=== PATIENT | male | born 1975 | race Two or more races ===

== ENCOUNTER → 2018-06-19 | Outpatient (CLI) | payer OTHER ==
--- NOTE | 2018-06-20 08:47 | RADIOLOGY REPORT (SQ) ---
EXAM DESCRIPTION: MRI CERVICAL SPINE WITHOUT COMPLETED DATE/TIME: 06/19/2018 8:27 pm REASON FOR STUDY: CERVICALGIA COMPARISON: None. TECHNIQUE: Sagittal and Axial imaging includes T1, T2, STIR and gradient echo sequences. LIMITATIONS: None. FINDINGS: ALIGNMENT: Normal. VERTEBRAE: Intact. BONE MARROW: Normal. No marrow replacement or reactive changes. DISCS: Disc disease at several levels. This includes small disc osteophyte complexes at C3-4 and C5- 6 particularly. HARDWARE: None in the spine. CORD AND BASE OF BRAIN: Skullbase structures incompletely assessed, grossly normal. There may be phyllis y subtle signal in the cord at the C5-6 level, myelopathic. SOFT TISSUES: No soft tissue masses. C1-C2: No significant spinal stenosis. C2-C3: No significant spinal stenosis or exit foraminal stenosis. C3-C4: Disc osteophyte complex contacts the cord without flattening. Mild left and moderate right fo raminal stenosis. C4-C5: Mild left and moderate right foraminal stenosis. C5-C6: Disc osteophyte complex contacts the cord with mild flattening. Marked right and moderate lef t foraminal stenosis. C6-C7: Bilateral foraminal stenosis, at least moderate. C7-T1: No significant spinal stenosis or exit foraminal stenosis. UPPER THORACIC: Incompletely imaged. No significant spinal stenosis or exit foraminal stenosis. OTHER: No other significant finding. IMPRESSION: 1. Multilevel cervical spondylosis. Most pronounced at C5-6. Here, there appears to be mild cord impingement with potential subtle myelopathic signal in the cord. TECHNICAL DOCUMENTATION: JOB ID: [id number] [employer]- All Rights Reserved Reading location - IP/workstation name: [email or web address]
== END ==
LOC: RAD 20:10
PROVIDERS: ATTEND Physician Assistant Medical
DX: M54.2 Cervicalgia (principal)
CPT/HCPCS: 72141

== ENCOUNTER → 2018-11-12 | Outpatient (CLI) | payer OTHER ==
--- NOTE | 2018-11-12 17:58 | RADIOLOGY REPORT (SQ) ---
EXAM DESCRIPTION: SCOLIOSIS SERIES COMPLETED DATE/TIME: 11/12/2018 5:50 pm REASON FOR STUDY: M54.5 LOW BACK PAIN M54.5 LOW BACK PAIN COMPARISON: None. NUMBER OF VIEWS: One view. TECHNIQUE: Standing AP exam of the thoracolumbar spine with measurement of the DAVENPORT angles. LIMITATIONS: None. FINDINGS: GENERALIZED BONY FINDINGS: No anomalies. No worrisome bone lesions. THORACIC SPINE: APEX: T7-8 ANGULATION: Right DEGREES: 8 LUMBAR SPINE: APEX: L2 ANGULATION: Left DEGREES: 7 CHANGE: Not applicable - no prior studies. OTHER: No other significant findings. IMPRESSION: SCOLIOSIS WITH MEASUREMENTS ABOVE. TECHNICAL DOCUMENTATION: JOB ID: [id number] [employer]- All Rights Reserved Reading location - IP/workstation name: [email or web address]
== END ==
LOC: RAD 17:34
PROVIDERS: ATTEND Physician Assistant
DX: M54.5 Low back pain (principal)
CPT/HCPCS: 72082

== ENCOUNTER 2019-12-05 18:00 | Emergency (ER) | payer OTHER ==
--- NOTE | 2019-12-05 19:19 | ER Document Report ---
ED Medical Screen (RME) - General Chief Complaint: Post Surgical Pain Stated Complaint: COUGH,FEVER,ABDOMINAL PAIN Time Seen by Provider: 12/05/19 19:13 Primary Care Provider: TYSHAWN RALPH PA [Primary Care Provider] - Follow up as needed Mode of Arrival: Ambulatory Information source: Patient Notes: HPI; 44-year-old male status post cervical discectomy sent in by his primary care physician as he had a CT today which shows a PE. Patient states has had a cough and some right upper quadrant pain for the past 3 days. This provider did a CT today and was diagnosed with a PE. He denies any recent travel. Previous history of DVTs or PEs. PE: Alert and oriented x3. Mild distress noted. Lungs: Clear to auscultation without rales rhonchi wheezes. Heart: Regular rate and rhythm without murmurs ,rubs, or gallops. I have greeted and performed a rapid initial assessment of this patient. A comprehensive ED assessment and evaluation of the patient, analysis of test results and completion of the medical decision making process will be conducted by additional ED providers. I have specifically instructed the patient or family members with the patient to immediately return to any nursing staff should anything change in the patient's condition or with their chief complaint. TRAVEL OUTSIDE OF THE [place] IN LAST 30 DAYS: No Past Medical History - Social History Frequency of alcohol use: None Drug Abuse: None Physical Exam - Vital signs Vitals: Temp Pulse Resp BP Pulse Ox 98.7 F 78 14 138/87 H 96 12/05/19 18:04 12/05/19 18:04 12/05/19 18:04 12/05/19 18:04 12/05/19 18:04 Course - Vital Signs Vital signs: Temp Pulse Resp BP Pulse Ox 98.7 F 78 14 138/87 H 96 12/05/19 19:01 12/05/19 18:04 12/05/19 18:04 12/05/19 18:04 12/05/19 18:04 Doctor's Discharge - Discharge Referrals: TYSHAWN RALPH PA [Primary Care Provider] - Follow up as needed
[2019-12-05 20:09] LABS: ABSOLUTE EOSINOPHILS # (AUTO) 0.2 10^3/uL (0.0-0.6); ABSOLUTE LYMPHOCYTES (AUTO) 1.5 10^3/uL (0.5-4.7); ABSOLUTE MONOCYTES (AUTO) 0.9 10^3/uL (0.1-1.4); ABSOLUTE NEUT (AUTO) 4.9 10^3/uL (1.7-8.2); BASOPHILS % (AUTO) 0.4 % (0-2); HEMATOCRIT 41.7 % (37.9-51.0); HEMOGLOBIN 14.3 g/dL (13.5-17.0); LYMPHOCYTES % (AUTO) 20.5 % (13-45); MEAN CORPUSCULAR HEMOGLOBIN 29.1 pg (27.0-33.4); MEAN CORPUSCULAR HGB CONC 34.3 g/dL (32.0-36.0); MEAN CORPUSCULAR VOLUME 85 fl (80-97); MONOCYTES % (AUTO) 11.7 % (3-13); PLATELET COUNT 266 10^3/uL (150-450); RED BLOOD COUNT 4.92 10^6/uL (4.35-5.55); RED CELL DISTRIBUTION WIDTH 13.3 % (11.5-14.0); SEGMENTED NEUTROPHILS % (AUTO) 65.4 % (42-78); TOTAL CELLS COUNTED % (AUTO) 100 %; WHITE BLOOD COUNT 7.5 10^3/uL (4.0-10.5)
[2019-12-05 20:12] LABS: INTERNATIONAL RATION (INR) 1.03; PROTHROMBIN TIME 13.5 SEC (11.4-15.4)
[2019-12-05 20:28] LABS: ALBUMIN 4.2 g/dL (3.5-5.0); ALKALINE PHOSPHATASE 104 U/L (38-126); ANION GAP 11 (5-19); ASPARTATE AMINO TRANSFERASE 68 U/L (17-59); BILIRUBIN,TOTAL 0.4 mg/dL (0.2-1.3); BLOOD UREA NITROGEN 15 mg/dL (7-20); CALCIUM 9.7 mg/dL (8.4-10.2); CARBON DIOXIDE 30 mmol/L (22-30); CHLORIDE 95 mmol/L (98-107); GLUCOSE 110 mg/dL (75-110); POTASSIUM 4.6 mmol/L (3.6-5.0); TOTAL PROTEIN 7.5 g/dL (6.3-8.2)
--- NOTE | 2019-12-05 20:54 | ER Document Report ---
ED General - General Chief Complaint: Post Surgical Pain Stated Complaint: COUGH,FEVER,ABDOMINAL PAIN Time Seen by Provider: 12/05/19 19:13 Primary Care Provider: [facility] [Provider Group] - Follow up as needed MATIAS KIM MD [ACTIVE STAFF] - Follow up as needed TYSHAWN RALPH PA [NO LOCAL MD] - Follow up as needed Mode of Arrival: Ambulatory Notes: 44-year-old male presenting today for 2 days of fever, right upper quadrant pain, shortness of breath s/p C5-C6 disc replacement performed on November 26. States he has had 3 episodes of hemoptysis. Shortness of breath occurs with exertion. He has a sharp pain with inspiration and with laying down. States he has some right upper quadrant pain. Has mild headache. Described as dull. States radiates from C5-C6 region. No thunderclap headache, worst headache of life or severe/sharp onset. Has had a fever at home around 100 degrees. Currently afebrile. He has been active and working in the backyard as instructed by surgeons. Had a CT scan performed at 2:00 this afternoon ordered by his PCM and then he was called and told he had a PE and to report to the emergency department. He had Percocet at 3:00 this afternoon. Is having bowel movements. Denies any pain or tenderness or discharge from surgical site along anterior right chest. No vomiting, diarrhea, no pain with urination. No chills. Denies any lower extremity swelling. Denies any IV drug use. Denies chest pain. Surgeon for disc replacement was Joelle Prather at [facility]. Sonia Alegria with [facility] in [place] has been providing his pre and post op care and ordered the CT chest. TRAVEL OUTSIDE OF THE [place] IN LAST 30 DAYS: No - Related Data Allergies/Adverse Reactions: No Known Allergies Allergy (Unverified 12/05/19 21:53) Past Medical History - General Information source: Patient - Social History Smoking Status: Never Smoker Frequency of alcohol use: None Drug Abuse: None Family History: Reviewed & Not Pertinent Patient has homicidal ideation: No - Past Medical History Cardiac Medical History: Reports: None Pulmonary Medical History: Reports: None EENT Medical History: Reports: None Neurological Medical History: Reports: None Endocrine Medical History: Reports: None Renal/ Medical History: Reports: None GI Medical History: Reports: None Other: back pain Surgical Hx: Other - c5-c6 disc replacement Review of Systems - Review of Systems Constitutional: See HPI EENT: No symptoms reported Cardiovascular: See HPI Respiratory: See HPI Gastrointestinal: See HPI Genitourinary: No symptoms reported Male Genitourinary: No symptoms reported Musculoskeletal: Back pain Skin: No symptoms reported Hematologic/Lymphatic: No symptoms reported Neurological/Psychological: No symptoms reported Physical Exam - Vital signs Vitals: Temp Pulse Resp BP Pulse Ox 98.7 F 78 14 138/87 H 96 12/05/19 18:04 12/05/19 18:04 12/05/19 18:04 12/05/19 18:04 12/05/19 18:04 - Notes Notes: Adult General: GENERAL: Alert, interacts well. No acute distress. Resting in the bed. HEAD: Normocephalic, atraumatic EYES: Pupils equal, round and reactive to light. Extraocular movements intact. ENT: Oral mucosa moist, tongue midline. Oropharynx unremarkable. Airway pat ent. Nares patent, sinuses nontender, ear canals unremarkable, TMs intact. NECK: Full range of motion. Supple. Trachea midline. No lymphadenopathy. No nuchal rigidity. LUNGS: Clear to auscultation bilaterally, no wheezes, rales, or rhonchi. No respiratory distress. Nontender chest wall. HEART: Regular rate and rhythm. No murmurs, rubs or gallops. ABDOMEN: Soft, mild tendnerness to right upper quadrant. Nondistended. (-) ashton's sign. Bowel sounds present in all 4 quadrants. GENITOURINARY: Deferred EXTREMITIES: Moves all 4 extremities spontaneously. No edema, normal radial and dorsal pedis pulses bilaterally. No cyanosis. BACK: No cervical, thoracic, lumbar midline tenderness. No saddle anesthesia, normal distal neurovascular exam. Moves all extremities with full range of motion. NEUROLOGICAL: Alert and oriented x3. Normal speech. Cranial nerves II through XII grossly intact. Strength 5/ 5 in all extremities. PSYCH: Normal affect, normal mood. SKIN: Warm, dry, normal turgor. 2 inch well approximated incision on right lateral upper mid chest. No associated swelling, discharge, erythema or tenderness. Course - Re-evaluation Re-evalutation: 12/06/19 01:[address] chest performed today and was told by his doctor that he had a pulmonary embolism and instructed come to the emergency department. Patients imaging was done at [facility] diagnostic imaging but we are unable to pull up the CT scan at this time. Patient is currently non-hypoxic, nontachypneic, and afebrile. He took his last Percocet around 3 this afternoon. He is currently not on any anticoagulation medication. Chest x-ray shows blunting of the right costophrenic angle and minimal adjacent atelectasis. No pneumonia. Patient was provided a loading dose of Lovenox in the emergency department. Labs show normal PT/INR. Does have mild increase in his AST and ALT. Additional labs are unremarkable. EKG is normal sinus 63 bpm. Bilateral ultrasound of the lower extremities was performed which showed no DVT. Patients troponin is negative. Discussed case with Dr. Kim with [facility] who recommends no additional testing at this time and starting patient on either Eliquis or Xarelto. They also recommend follow-up outpatient care. Patient will be prescribed Xarelto 15 mg twice daily x21 days. Side effects of medication discussed. Discussed with patient that he will need to follow up with hemotology/oncology as soon as possible and that the referral information will be on his discharge paperwork. Recommend patient also follow up [facility] as soon as possible. He states he has a few days left of his percocet. Will not prescribe more at this time. Answered all patients questions. Return precautions discussed with patient to include worsening symptoms or development of new symptoms. Patient verbalizes understanding of instructions. - Vital Signs Vital signs: Temp Pulse Resp BP Pulse Ox 98.1 F 78 10 L 122/90 H 97 12/06/19 01:33 12/05/19 18:04 12/05/19 22:00 12/05/19 21:00 12/05/19 22:00 - Laboratory Result Diagrams: 12/05/19 19:50 12/05/19 19:50 Laboratory results interpreted by me: 12/05/19 19:50 Sodium 136.1 L Chloride 95 L AST 68 H ALT 66 H - EKG Interpretation by Me Additional EKG results interpreted by me: 12/05/19 22:41 sinus rhythm at 63, pr interval of 164, qtc 414. No ST segment elevation or depression. Discharge - Discharge Clinical Impression: Pulmonary embolism Qualifiers: Pulmonary embolism type: unspecified Chronicity: acute Acute cor pulmonale presence: unspecified Qualified Code(s): I26.99 - Other pulmonary embolism without acute cor pulmonale Disposition: HOME, SELF-CARE Additional Instructions: Please follow up with your pcm and hematology as soon as possible. If you develop worsening symptoms or development of new symptoms please return to the emergency department. Please take medication as prescribed. For pain you may continue to take your percocet. Prescriptions: Rivaroxaban [Xarelto 15 mg Tablet] 15 mg PO BID #42 tablet Referrals: TYSHAWN RALPH PA [NO LOCAL MD] - Follow up as needed MATIAS KIM MD [ACTIVE STAFF] - Follow up as needed [facility] [Provider Group] - Follow up as needed
--- NOTE | 2019-12-05 21:06 | RADIOLOGY REPORT (SQ) ---
CLINICAL INDICATION: probable pe. TECHNIQUE: A single portable AP view was obtained of the chest at 2056 hours. COMPARISON: None. FINDINGS: The cardiomediastinal silhouette is normal. The lungs are grossly clear. Blunting right costophrenic angle. No pneumothorax. The visualized bones are unremarkable. IMPRESSION: Blunting right costophrenic angles. Minimal adjacent atelectasis..
[2019-12-05 22:08] VITALS: BP 122/90
[2019-12-05] MEDS ORDERED: OXYCODONE-ACETAMINOPHEN 5-325 MG TABLET PO ONE (22:48)
[2019-12-05] MEDS ORDERED: ENOXAPARIN SODIUM INJ 80 MG/0.8 ML DISP.SYRIN SUBCUT ONE (23:11)
--- NOTE | 2019-12-05 23:30 | RADIOLOGY REPORT (SQ) ---
INDICATION: PE , bilaterally. PROCEDURE: Real-time grayscale, color, and pulse Doppler ultrasound imaging of the bilateral lower extremity deep venous system was performed. 76 static images. 2 additional cine loops COMPARISON: None FINDINGS: The common femoral, superficial femoral, and popliteal veins demonstrate normal compressibility, phasic flow, augmentation and ellis scale evaluation. There is no evidence of intraluminal thrombus . The visualized deep calf veins appear patent. Rouleaux flow right popliteal vein IMPRESSION: No evidence for acute deep venous thrombus from the common femoral to the popliteal veins.
--- NOTE | 2019-12-06 12:42 | EKG REPORT ---
SEVERITY:- OTHERWISE NORMAL ECG - SINUS RHYTHM RIGHT AXIS DEVIATION : Confirmed by: Isaiah Kimble 06-Dec-2019 12:41:11
== END 2019-12-06 01:28 | disposition home or self-care (01) ==
LOC: ER 18:00
DX: I26.99 Other pulmonary embolism without acute cor pulmonale (principal); G89.18 Other acute postprocedural pain; R10.11 Right upper quadrant pain; R05 Cough
CPT/HCPCS: 93005; 99284; 96372; 36415; 85025; 85610; 80053; 84484; 93970; 71045; 93010; J1650